=== PATIENT | male | born 1995 | race Caucasian/White ===

== ENCOUNTER 2019-02-13 07:56 | Emergency (ER) | payer OTHER | END 2019-02-13 08:40 | disposition home or self-care (01) | LOC: FTE 08:40 | DX: S41.132A Puncture wound without foreign body of left upper arm, initial encounter (principal); J45.909 Unspecified asthma, uncomplicated; F17.210 Nicotine dependence, cigarettes, uncomplicated; W26.0XXA Contact with knife, initial encounter; Y92.9 Unspecified place or not applicable | CPT/HCPCS: 99282; Z7502 ==